=== PATIENT | female | born 1950 | race Caucasian/White ===

== ENCOUNTER → 2020-05-15 | Outpatient (CLI) | payer BC ==
--- NOTE | 2020-05-15 09:24 | Diagnostic Imaging Report ---
INDICATION: Right hand pain 3 views right hand There appears to be some osteoarthritic changes of the fingers most prominently of the distal interphalangeal joints. There is also mild joint space narrowing of the 1st carpometacarpal joint. IMPRESSION: Mild osteoarthritis. No fracture or dislocation. Dictated by: Dictated on workstation # [id number]
== END ==
LOC: RAD FS 08:54
PROVIDERS: ATTEND Family Medicine
DX: M19.041 Primary osteoarthritis, right hand (principal)
CPT/HCPCS: 73130

== ENCOUNTER 2020-10-14 05:35 | Outpatient (CLI) | payer BC ==
[~2020-10-14] VITALS: Ht 157.5 cm; Wt 56.7 kg
[2020-10-15] MEDS ORDERED: UBID10CA5 PO (09:20)
[2020-10-15] MEDS ORDERED: OTC ALLERGY (09:20)
[2020-10-15] MEDS ORDERED: ASPI-999 PO (09:20)
[2020-10-15] MEDS ORDERED: MULT-974 PO (09:20)
[2020-10-15] MEDS ORDERED: OMEG1TAB5 PO (09:23)
[2020-10-15] MEDS ORDERED: LEVO75CA5 PO (09:23)
[2020-10-15] MEDS ORDERED: GEMF600T88 PO (09:23)
== END 2020-10-15 13:40 | disposition home or self-care (01) ==
LOC: PREOP 05:35
PROVIDERS: ATTEND Surgery
DX: Z01.818 Encounter for other preprocedural examination (principal)

== ENCOUNTER 2020-10-22 09:54 | Day surgery (SDC) | payer MEDICARE ==
[~2020-10-22] VITALS: Ht 157.5 cm; Wt 56.7 kg
[2020-10-22] VITALS (7 sets, daily range): BP systolic 115–121; BP diastolic 70–89
[~2020-10-22 09:54] MED LIST: ASPI-999 PO; GEMF600T88 PO; LEVO75CA5 PO; MULT-974 PO; OMEG1TAB5 PO; OTC ALLERGY; UBID10CA5 PO
--- NOTE | 2020-10-22 09:59 | Progress Note-Pre Operative ---
Pre-Operative Progress Note H&P Reviewed The H&P was reviewed, patient examined and no changes noted. Time Seen by Provider: 09:58 Date H&P Reviewed: Oct 22, 2020 Time H&P Reviewed: 09:58 Pre-Operative Diagnosis: Hx of Polyps RODDY RUDD DO Oct 22, 2020 09:59
[2020-10-22] MEDS ORDERED: LACTATED RINGERS 1,000 ML IV ONE (10:00)
[2020-10-22] MEDS ORDERED: MIDAZOLAM 2 MG/2 ML (VERSED) VIAL ONE (10:06)
[2020-10-22] MEDS ORDERED: PROPOFOL INJECTION 50 ML IV ONE (10:06)
[2020-10-22] MEDS ORDERED: LACTATED RINGERS 1,000 ML IV STA (10:20)
--- NOTE | 2020-10-22 10:45 | Progress Note-Post Operative ---
Post-Operative Progess Note Surgeon (s)/Hat Cleaner (s) Surgeon RODDY RUDD DO Hat Cleaner: ÓSCAR Gale Pre-Operative Diagnosis Hx of Polyps Post-Operative Diagnosis Diverticula int hemorrhoids Procedure & Operative Findings Date of Procedure 10/22/20 Procedure Performed/Findings PROCEDURE NOTE: After informed consent was obtained, the patient was brought to the endoscopy suite, placed in bed in left lateral decubitus position. She was administered IV sedation by the OUTBOARD TECHNICIAN who then monitored her vitals the entire time, heart rate, blood pressure and pulse ox and the scope was inserted, pushed all the way to about 150 cm and pushed into the cecum, took a picture of appendiceal orifice and then noted the ileo-cecal valve. Slowly withdrew the scope insufflating to look circumferentially at the chiang starting in the cecum, up the ascending colon to the hepatic flexure, then down the transverse colon, splenic flexure, into the descending colon down in the sigmoid and then into the rectal vault. Saw very large diverticula in sigmoid and descending colon; even a couple on the right side. In the rectum I retroflexed the scope. Took picture of the internal hemorrhoids. The patient tolerated the procedure. She was recovered in endoscopy suite. Anesthesia Type IV sedation by OUTBOARD TECHNICIAN Estimated Blood Loss Estimated blood loss (mL): none Specimens/Packing Specimens Removed none RODDY RUDD DO Oct 22, 2020 10:45
--- NOTE | 2020-10-22 10:46 | Endoscopy Discharge Instruct ---
Endo Procedure/Findings Findings 1.: Diverticulosis 2.: Internal Hemorrhoids Discharge Instructions - Activity: You might feel a little sleepy until tomorrow. This is due to the medicine you received to relax you. Until tomorrow, you should: NOT drive a car, operate machinery or power tools. NOT drink any alcoholic beverages. NOT make any important decisions or sign importortant papers. Do not return to work until tomorrow, unless otherwise instructed. Resume previous activities tomorrow. Diet: Start by taking liquids. If you tolerate liquids, advance to solid food. 1.: Colonscopy in 10 years Notify Physician - If you experience excessive bleeding, unusual abdominal pain, fever, or chest pain, contact your doctor immediately. RODDY RUDD DO Oct 22, 2020 10:46
--- NOTE | 2020-10-22 10:55 | Anesthesia-General Post-Op ---
MAC Patient Condition Mental Status/LOC: Same as Preop Cardiovascular: Satisfactory Nausea/Vomiting: Absent Respiratory: Satisfactory Pain: Controlled Complications: Absent Post Op Complications Complications None Follow Up Care/Instructions Patient Instructions None needed. Anesthesiology Discharge Order Discharge Order Patient is doing well, no complaints, stable vital signs, no apparent adverse anesthesia problems. No complications reported per nursing. LORENA PINA CRNA Oct 22, 2020 10:54
== END 2020-10-22 11:35 | disposition home or self-care (01) ==
LOC: ENDO 09:54
PROVIDERS: ATTEND Surgery
DX: Z12.11 Encounter for screening for malignant neoplasm of colon (principal); K57.30 Diverticulosis of large intestine without perforation or abscess without bleeding; K64.8 Other hemorrhoids; E07.9 Disorder of thyroid, unspecified; M19.90 Unspecified osteoarthritis, unspecified site; Z79.02 Long term (current) use of antithrombotics/antiplatelets; Z79.890 Hormone replacement therapy; Z90.89 Acquired absence of other organs; Z86.010 Personal history of colon polyps; Z79.82 Long term (current) use of aspirin; Z79.899 Other long term (current) drug therapy; Z80.9 Family history of malignant neoplasm, unspecified; Z82.49 Family history of ischemic heart disease and other diseases of the circulatory system